=== PATIENT | female | born 1975 | race Caucasian/White ===

== ENCOUNTER → 2017-08-18 10:11 | Outpatient (POV) | payer MEDICAID, SELFPAY | PROVIDERS: Family Provider Nurse Practitioner; PCP Nurse Practitioner; Visit Provider Otolaryngology | DX: Z00.00 Encounter for general adult medical examination without abnormal findings (principal) ==

== ENCOUNTER 2017-11-06 09:00 | Outpatient (RCR) | payer MEDICAID, SELFPAY ==
--- NOTE | 2017-09-14 09:25 | HMH.PTOPWND ---
Rehab Outpt Wound Evaluation Rehab OP Wound Evaluation Start: 09/14/17 09:02 Freq: Status: Active Protocol: Document 09/14/17 09:12 TRENT (Rec: 09/14/17 09:23 PHORKISHA [id number]) Electronically Signed By Ap Morel, PT 09/14/17 09:12 Subjective/History History History Pt is 42 yof who presents to clinic with c/o mary LE edema for unknown period of time with insidious onset of symptoms. Pt reports pain in mary knees an is tender to palpation throughout mary lower legs. She reports hx of one C -section, but denies any other PMH. Pt is a poor historian. Lymphedema Eval Stemmer's sign Stemmer's Sign no Stage of Lymphedema Lymphedema stages Stage 0 (subjective c/o heaviness and aching) Skin Changes Dry Skin Yes Pain Scale Pain Scale (0-10) 9 Affected Extremities Areas Affected by Lymphedema/Edema Right Lower Extremity Left Lower Extremity Manual Lymphatic Drainage Treatment Area MLD Treatment Area Right Lower Extremity Left Lower Extremity Wound Problems/Impairments Impairments Problems/Impairmments Palpation Tenderness Impaired Walking Increased Edema Subjective C/O Pain Impaired Self Care/Self Management Prognosis Rehab Potential Fair Clinical Impression Consistent with possible lipidema Short Term Goals Number of Weeks 4 Decreased Palpation Tenderness Yes: to min Decrease Subjective C/O Pain Yes: 10/13 Patient to Understand Lymphedema Yes Treatment and Exercises Decrease Girth Measurments by (cm) Yes: by 5 cm Explosive Man Goals Number of Weeks 8 Decreased Palpation Tenderness Yes: to none Decrease Subjective C/O Pain Yes: / Patient to be Ind w/ HEP Yes Patient to Adhere Lymphedema Precautions Yes Decrease Girth Measurments by (cm) Yes: by 10 cm Outpatient Therapy Plan of Care Treatment Plan May Include Therapeutic Exercise Including Home Yes Exercise Program Manual Therapy Techniques Yes Neuromuscular Re-education Yes Orthotics/Bracing/Splinting Yes Vasopneumatic Compression Pump Yes Massage Yes Manual Lymphatic Drainage Yes Eval/Re-Eval Yes Frequency Times per week 2 Duration
== END 2017-11-06 09:01 | disposition home or self-care (01) ==
LOC: PT 09:00
PROVIDERS: Family Provider Nurse Practitioner; PCP Nurse Practitioner; Visit Provider Nurse Practitioner Family
DX: I89.0 Lymphedema, not elsewhere classified (principal)
CPT/HCPCS: 97140; 97162; 97760

== ENCOUNTER → 2018-06-22 10:15 | Outpatient (CLI) | payer MEDICAID, SELFPAY ==
--- NOTE | 2018-06-22 10:17 | MM_ITS ---
MM Dig screening mamm BI w/CAD CAD Screening COMPARISON: There are no previous mammograms available for review INDICATION: There is no personal or family history of breast cancer TECHNIQUE: Standard CC and MLO images were obtained. R2 CAD reviewed. FINDINGS: Prominent diffuse fibroglandular densities are seen in both breasts. There is an asymmetric oval mass upper outer quadrant right breast with relatively smooth borders recommend the patient return for spot compression views and ultrasound for additional evaluation. There is no suspicious mass either breast and there are no suspicious microcalcifications. The nodular density near the axilla tail left breast with smooth borders likely a low-lying node. IMPRESSION: Moderate diffuse breast density with asymmetric mass right breast BI-RADS Category: 0 Need Additional Imaging Evaluation RECOMMENDED FOLLOW-UP: IMM - IMMEDIATE FOLLOW-UP RECOMMENDED (A letter has been sent to the patient regarding results of the study.)
== END ==
PROVIDERS: PCP Nurse Practitioner Family; Visit Provider Nurse Practitioner Obstetrics & Gynecology
DX: Z12.31 Encounter for screening mammogram for malignant neoplasm of breast (principal)
CPT/HCPCS: 77067

== ENCOUNTER → 2018-07-02 11:23 | Outpatient (CLI) | payer MEDICAID, SELFPAY ==
--- NOTE | 2018-07-02 11:25 | US_ITS ---
US transvaginal HISTORY: ITS.REASON: US T/V- Pelvic pain ORDERING PHYSICIAN: Jacob Hanson MD PATIENT AGE: 43 years Comparison: None FINDINGS: The uterus measures 10 x 5 x 6 cm. Combined omental thickness is thickened at 15 mm. Study is somewhat limited technically. Ovaries are not demonstrated despite endovaginal and transabdominal scanning. No cul-de-sac fluid evident. IMPRESSION: Bulky uterus with thickened endometrium Ovaries not demonstrated.
== END ==
PROVIDERS: PCP Nurse Practitioner Family; Visit Provider Nurse Practitioner Obstetrics & Gynecology
DX: R10.2 Pelvic and perineal pain (principal)
CPT/HCPCS: 76830

== ENCOUNTER → 2018-09-30 13:13 | Outpatient (CLI) | payer MEDICAID, SELFPAY ==
--- NOTE | 2018-09-30 13:15 | US_ITS ---
US urinary bladder ORDERING PHYSICIAN : Irma Kearney APRN PATIENT AGE: 43 years GENDER: Female HISTORY:ITS.REASON: RECURRENT UTIS COMPARISON: None TECHNIQUE: Routine FINDINGS: The fluid filled urinary bladder shows measurements of 6.7 x 7.8 x 4.3 cm with a volume of 121 mL. The melgoza are smooth. Post void residual is 2.5 x 1.1 x 2.4 cm with volume of 3.6 mL. IMPRESSION: Minimal post void residual. No urinary bladder mucosal lesion or filling defects.
--- NOTE | 2018-09-30 13:15 | US_ITS ---
US Kidney ORDERING PHYSICIAN : Irma Kearney APRN PATIENT AGE: 43 years GENDER: Female HISTORY:ITS.REASON: RECURRENT UTIS COMPARISON: None. TECHNIQUE: Routine FINDINGS: Right kidney is 11.2 x 4.1 x 5.9 cm. Left kidney is 10.3 x 5.0 x 7.5 cm. The echogenicity of the renal cortical areas bilaterally are normal compared to the liver. There are no shadowing echogenic foci or hydronephrosis. There is no abnormal cortical thinning. IMPRESSION: Normal ultrasound of both kidneys. Technologist stated possible decreased flow of blood to the right kidney however this could be technical. If there is any history of hypertension although there is no right renal atrophy, if necessary a CTA could evaluate the renal arteries if clinically necessary.
== END ==
PROVIDERS: PCP Nurse Practitioner Family; Visit Provider Nurse Practitioner Family
DX: N39.0 Urinary tract infection, site not specified (principal)
CPT/HCPCS: 76770; 76857

== ENCOUNTER → 2020-03-08 14:37 | Outpatient (CLI) | payer MEDICAID, SELFPAY ==
--- NOTE | 2020-03-08 14:41 | XR_ITS ---
PROCEDURE: XR CHEST PORTABLE CLINICAL HISTORY: COVID SCREENING COMPARISON: CR CXR CHEST(2 VIEWS-NOT PORTABLE) from 10/14/2014 CR CXR2V XR chest 2V from 08/19/2018 FINDINGS: The cardiomediastinal silhouette and pulmonary vascularity are within normal limits. On the initial exam the lung apices were clipped. The patient was asked to return on 03/09/2020 for repeat exam which covered the entire lung jacobo. The lungs are clear without infiltrates, suspicious nodules, or pleural effusions. No acute bony abnormalities. IMPRESSION: No acute findings. Dictated by: Liam Teresa MD 03/09/2020 18:09 Liam Teresa MD in [facility] 03/09/2020 18:09
[2020-03-10 18:37] LABS: Covid-19 Nasal PCR Sendout Lex Positive
== END ==
PROVIDERS: PCP Nurse Practitioner Family; Visit Provider Nurse Practitioner Family
DX: Z20.828 Contact with and (suspected) exposure to other viral communicable diseases (principal); U07.1 COVID-19
CPT/HCPCS: 71045; U0004

== ENCOUNTER → 2020-03-09 16:34 | Outpatient (CLI) | payer MEDICAID, SELFPAY ==
--- NOTE | 2020-03-09 | XR_ITS ---
PROCEDURE: REPEAT VIEW XR CLINICAL INDICATION: Covid19 the COMPARISON: CR XR CHEST PORTABLE from 03/08/2020 FINDINGS: Unremarkable cardiovascular structures. Lungs are clear. Calcified node is present in the left hilum. IMPRESSION: No acute findings. Dictated by: Liam Teresa MD 03/09/2020 17:44 Liam Teresa MD in [facility] 03/09/2020 17:44
== END ==
PROVIDERS: PCP Nurse Practitioner Family; Visit Provider Nurse Practitioner Family
DX: Z03.818 Encounter for observation for suspected exposure to other biological agents ruled out (principal)

== ENCOUNTER → 2020-12-04 15:07 | Outpatient (CLI) | payer MEDICAID, SELFPAY ==
[2020-12-05 14:27] LABS: Urine Pregnancy, HCG Qual. Negative (Negative)
== END ==
PROVIDERS: Visit Provider Urology
DX: R32 Unspecified urinary incontinence (principal)
CPT/HCPCS: 36415; 80053; 81025; 82306; 85025; 87086

== ENCOUNTER 2022-02-19 08:47 | Emergency (ER) | payer MEDICAID, SELFPAY ==
[2022-02-19] VITALS (7 sets, daily range): BP systolic 91–137; BP diastolic 57–82; PULSE 72–89; RESP 16–20; TEMP 36.9; O2SAT 95–99; BMI 40.6
[2022-02-19 09:04] LABS: Microscopic, Urine URINE MICROSCOPIC (MICROSCOPIC)
[2022-02-19 09:05] LABS: Appearance,Urine CLEAR (Clear); Bilirubin,Urine Negative (Negative); Blood, Urine 3+ (Negative); Color,Urine YELLOW (Yellow); Glucose,Urine (UA) Negative (Negative); Ketones,Urine Negative (Negative); Leukocyte Esterase,Urine TRACE (Negative); Nitrate,Urine Negative (Negative); PH,Urine 5.5 (5.0-8.5); Protein,Urine TRACE (Negative); Specific Gravity, Urine >= 1.030 (1.005-1.030); Urobilinogen,Urine 0.2 EU/dl (0.2)
[2022-02-19 09:28] LABS: WBC,Urine Occasional #/hpf (0-3)
--- NOTE | 2022-02-19 09:32 | PC.NURSE ---
ED MD AT BEDSIDE FOR EVALUATION
--- NOTE | 2022-02-19 09:38 | CT_ITS ---
FINAL REPORT TECHNIQUE: Axial images through the abdomen and pelvis were performed without contrast. This study was performed with techniques to keep radiation doses as low as reasonably achievable, (ALARA). Individualized dose reduction techniques using automated exposure control or adjustment of mA and/or kV according to the patient's size were employed. CLINICAL HISTORY: hematuria, back pain, dysuria FINDINGS: Abdomen: The lung bases are clear. There is a nodule in the right breast measuring 1.7 cm in diameter. This appears to be solid and rounded and is well seen on image 6 of series 3. The liver parenchyma is homogeneous. The spleen, pancreas, adrenals and kidneys are unremarkable. Pelvis: The appendix is unremarkable. The uterus is anteverted and lies midline. The urinary bladder is unremarkable. There is no pelvic mass or inflammation. IMPRESSION: No acute abdominal or pelvic abnormality. 1.7 cm solid nodule in the right breast, neoplasia not excluded.. Correlation with physical exam and mammography highly recommended. Reviewed, Interpreted and Dictated by Eris Tejada MD Transcribed by Marci Staton Authenticated and [facility]
--- NOTE | 2022-02-19 09:39 | HMH.EDGENADL ---
Discharge Plan Disposition Patient Disposition: Home, Self-Care Condition: Good Prescriptions Prescriptions: No Action ferrous sulfate 325 mg (65 mg iron) tablet 325 mg PO DAILY ranitidine HCl 150 mg capsule 150 mg PO DAILY Zyrtec 10 mg capsule 10 mg PO DAILY fluticasone propionate [Flonase Allergy Relief] 50 mcg/actuation spray,suspension 1 spray INTRANASAL DAILY MDD allergy naproxen 375 mg tablet 375 mg PO BID PRN (Reason: pain) lisinopril-hydrochlorothiazide 20-12.5 mg tablet PO DAILY Label Comments: TAKE ONE TABLET BY MOUTH EVERY DAY pantoprazole 40 mg tablet,delayed release (DR/EC) 40 mg PO DAILY divalproex [Depakote] 500 mg tablet,delayed release (DR/EC) 500 mg PO TID triamterene-hydrochlorothiazid 37.5-25 mg capsule 1 cap PO DAILY amitriptyline 10 mg tablet 10 mg PO DAILY oxybutynin chloride 5 mg tablet extended release 24hr 5 mg PO DAILY Toviaz 4 mg tablet extended release 24 hr 4 mg PO DAILY aripiprazole 5 mg tablet 5 mg PO QHS Qty: 30 2RF oxybutynin chloride 5 mg tablet 5 mg PO BID Qty: 120 5RF Toviaz 8 mg tablet extended release 24 hr 8 mg PO DAILY Qty: 30 5RF ondansetron 4 MG tablet,disintegrating 4 mg PO Q8HP PRN (Reason: Nausea) Qty: 20 0RF Referrals Follow up/Referrals: Irma Kearney APRN [Primary Care Provider] - See instructions Activity Restrictions/Add. Instructions Additional Instructions/Restrictions: Follow-up tomorrow with your primary care provider as scheduled. Your tests did not show a reason for your urinary symptoms, follow-up with your primary care provider for further evaluation. Urine culture has been performed, results generally take 2 to 3 days. Follow-up the results of this test with your primary care provider within 2 [address] scan showed a mass in your right breast which needs further evaluation by your primary care provider. Follow-up regarding this tomorrow. Clinical Impressions Clinical Impression: Dysuria, Back pain, Breast mass, right Instructions Patient Instructions: DI for Dysuria -- Adult, DI for Breast Mass -- Uncertain Cause Discharge ED Provider: Ferdinand Cartagena Adult [facility] General Chief complaint: Urogenital-Female Stated complaint: Possible UTI Time Seen by Provider: 02/19/22 09:17 Mode of Arrival: Ambulatory Limitations: No Limitations Description of Symptoms (Recalled from ER Triage Doc. by RN): PT REPORTS BURNING WITH URINATION. CURRENTLY ON ABX, STATES SHE IS NOT GETTING ANY BETTER History of Present Illness HPI narrative: Patient is a poor historian. States that she has a UTI and its not getting any better. States she has been symptomatic for a couple of weeks with dysuria, bilateral flank pain, left lower quadrant pain. She saw her primary care provider couple of weeks ago. She says that she was told she had blood in her urine. She does not know whether a culture was done. She was started on Cipro and Pyridium and has not improved. Denies fever. No prior history of kidney stone. She is sexually active. Denies genital discharge or lesions. States that she has been having trouble with her menses, but is not currently bleeding. States she has an appointment to see her primary care provider tomorrow. Related Data Home Medications Medication Instructions Recorded Confirmed amitriptyline 10 mg tablet 10 mg PO DAILY . 04/20/18 02/11/22 divalproex 500 mg tablet,delayed 500 mg PO TID . 04/20/18 02/11/22 release (Depakote) fesoterodine 4 mg tablet,extended 4 mg PO DAILY . 04/20/18 02/11/22 release 24 hr (Toviaz) oxybutynin chloride 5 mg 5 mg PO DAILY . 04/20/18 02/11/22 tablet,extended release 24 hr pantoprazole 40 mg tablet,delayed 40 mg PO DAILY GERD 04/20/18 02/11/22 release triamterene 37.5 1 cap PO DAILY fluid 04/20/18 02/11/22 mg-hydrochlorothiazide 25 mg capsule cetirizine 10 mg capsule (
[2022-02-19 09:44] LABS: Urine Pregnancy, HCG Qual. Negative (Negative)
--- NOTE | 2022-02-19 09:51 | PC.NURSE ---
PT TO CT AT THIS TIME
[2022-02-19 10:02] LABS: Basophils # 0.1 K/mm3 (0-0.2); Basophils % 1.1 % (0.1-2.0); Eosinophils # 0.1 K/mm3 (0.0-0.4); Eosinophils % 1.4 % (0.1-12.0); Hematocrit 41.3 % (37.0-47.0); Lymphocytes # 2.5 K/mm3 (0.7-4.5); Lymphocytes % 36.8 % (10-50); Mean Corpuscular HGB Conc 31.4 g/dL (31.8-35.4); Mean Corpuscular Hemoglobin 30.4 pg (27.0-31.2); Mean Corpuscular Volume 96.7 fl (81-99); Mean Platelet Volume 8.4 fl (7.4-10.4); Monocytes # 0.5 K/mm3 (0.1-1.0); Monocytes % 6.6 % (1.7-9.3); Neutrophils # 3.7 K/mm3 (1.8-7.8); Neutrophils % 54.2 % (37.0-80.0); Platelet Count 252 K/mm3 (142-424); Red Blood Count 4.27 M/mm3 (4.20-5.40); Red Cell Distribution Width 14.3 % (11.5-17.5); White Blood Count 6.9 K/mm3 (4.8-10.8)
--- NOTE | 2022-02-19 10:08 | PC.NURSE ---
PT IN CT
[2022-02-19 10:09] LABS: Anion Gap 16.3 mEq/L (5-15); Blood Urea Nitrogen 32 mg/dl (7-17); Calcium 9.5 mg/dl (8.4-10.2); Carbon Dioxide 27 mmol/L (22.0-30.0); Chloride 101 mmol/L (98-107); Creatinine Clearance Estimated 141 mL/min (50-200); Estimated Glomerular Filt Rate 60 ml/min (>60); GFR (African American) 73 ML/MIN (>60); Glucose 91 mg/dl (74-100); Potassium 4.3 mmoL/L (3.5-5.1); Sodium 140 mmol/L (136-145)
--- NOTE | 2022-02-19 10:12 | PC.NURSE ---
PT RETURNED FROM CT
--- NOTE | 2022-02-19 11:15 | PC.NURSE ---
PT RESTING IN BED WATCHING TV, NO NEEDS AT THIS TIME
--- NOTE | 2022-02-19 12:30 | PC.NURSE ---
ROUNDED ON PT, NO NEEDS AT THIS TIME
--- NOTE | 2022-02-19 12:45 | PC.NURSE ---
present with MD during breast exam, pt tolerated well
[2022-02-20 21:20] LABS: Neisseria gonorrhoeae, NAA Negative (Negative)
== END 2022-02-19 12:56 | disposition home or self-care (01) ==
PROVIDERS: Emergency Provider Emergency Medicine; PCP Nurse Practitioner Family
DX: N39.0 Urinary tract infection, site not specified (principal); R31.9 Hematuria, unspecified; N63.11 Unspecified lump in the right breast, upper outer quadrant; F39 Unspecified mood [affective] disorder; Z79.1 Long term (current) use of non-steroidal anti-inflammatories (NSAID); Z79.51 Long term (current) use of inhaled steroids; Z79.899 Other long term (current) drug therapy; Z91.041 Radiographic dye allergy status; R11.0 Nausea
CPT/HCPCS: 74176; 80048; 81001; 81025; 85025; 87491; 87591; 99285

== ENCOUNTER → 2022-03-13 13:44 | Outpatient (CLI) | payer MEDICAID, SELFPAY ==
--- NOTE | 2022-03-13 13:47 | MM_ITS ---
PROCEDURE INFORMATION: Exam: Right Diagnostic Breast Tomosynthesis Exam date and time: 03/13/2022 1:53 PM Age: 46 years old Clinical indication: Concern for right breast lump. No family history of breast cancer. TECHNIQUE: Imaging protocol: Right Diagnostic tomosynthesis and 2D mammography including computer-aided detection (CAD) when performed. Unilateral or bilateral exam. Spot compression added on the right. COMPARISON: [facility] MM Dig screening mamm BI w/CAD 06/22/2018 10:26 AM FINDINGS: MAMMOGRAPHY: Breast composition: There are scattered areas of fibroglandular density. Mass: Palpable lump corresponds to a lobulated 1.7 cm mass in the right upper outer quadrant, anterior to middle 3rd, superficial, which is larger than 06/22/2018 - and had been advised for recall on that mammogram report. Architectural distortion: None. Calcifications: No suspicious calcifications. Asymmetric density: None. Skin thickening: None. Axillary adenopathy: None. IMPRESSION: Patient to be recalled for right sonography for further evaluation of suspicious lobulated 1.7 cm mass in the right upper outer quadrant corresponding to the palpable lump. ASSESSMENT: BI-RADS Category 0: Incomplete- Need Additional Imaging Evaluation and/or Prior Mammograms for Comparison
--- NOTE | 2022-03-13 14:56 | US_ITS ---
PROCEDURE INFORMATION: Exam: US Right Breast, Complete, Abscess Evaluation MG Diagnostic Breast Tomosynthesis Exam date and time: 03/13/2022 2:57 PM Age: 46 years old Clinical indication: Right palpable nodule TECHNIQUE: Imaging protocol: Right Ultrasound of the breast with image documentation. All quadrants and retroareolar regions evaluated. Exam focused on the search and evaluation for abscess. Exam is an emergent request and a non-BIRADS study. Diagnostic tomosynthesis and 2D mammography including computer-aided detection (CAD) when performed. Unilateral or bilateral exam. COMPARISON: [facility] MM Dig screening mamm BI w/CAD 06/22/2018 10:26 AM FINDINGS: MAMMOGRAPHY: The breast tissue is composed of scattered areas of fibroglandular density. Routine and spot compression views over the area of palpable concern in the right approximate 9 o'clock axis demonstrates a lobulated 2.0 cm mass. There is no stellate mass, architectural distortion or suspicious microcalcifications in either breast to suggest malignancy. No skin thickening or axillary adenopathy. ULTRASOUND: Sonographic images of the right 9 o'clock axis 2 cm from the nipple where the patient reports a palpable abnormality demonstrates a mixed solid and cystic mass measuring 1.8 x 1.5 1.6 cm in dimension. An intracystic papillary lesion is suspected. No other solid or cystic masses in the right breast. No axillary adenopathy. IMPRESSION: Palpable abnormality in the right breast corresponds mammographically and sonographically to an indeterminate predominately solid mass for which ultrasound-guided core biopsy is recommended for further evaluation ASSESSMENT: BI-RADS Category 4: Suspicious
== END ==
PROVIDERS: PCP Nurse Practitioner Family; Visit Provider Nurse Practitioner Family
DX: N63.13 Unspecified lump in the right breast, lower outer quadrant (principal)
CPT/HCPCS: 76641; 77062; 77066; G0279

== ENCOUNTER → 2022-03-26 08:37 | Outpatient (CLI) | payer MEDICAID, SELFPAY ==
--- NOTE | 2022-03-26 08:45 | US_ITS ---
FINAL REPORT CLINICAL HISTORY: ABN RT BREAST US, right breast nodule FINDINGS: ULTRASOUND-GUIDED RIGHT BREAST CORE BIOPSY TECHNIQUE: Limited images were obtained to localize region of interest. The right breast was prepped in a routine sterile fashion and locally anesthetized with 1% lidocaine. Standard written informed consent was obtained. The biopsy needle was positioned within the outer periphery of the lesion. A total of 3 passes were made with a 16 gauge core biopsy needle. A biopsy marker clip was deployed in satisfactory position. Postbiopsy mammogram showed postbiopsy changes with clip in satisfactory position. Procedure was well tolerated . CONCLUSION: 1. Technically successful ultrasound guided core biopsy of right breast lesion as above. 2. Biopsy marker clip deployed Recommendation: Histopathology revealed sclerosing intraductal papilloma. Although this is a benign diagnosis the lesion shows significant enlargement since 2019. Surgical excision is recommended, particularly since a minority of these cases can be associated with carcinoma with excisional biopsy. Authenticated and [facility]
--- NOTE | 2022-03-26 08:47 | MM_ITS ---
FINAL REPORT CLINICAL HISTORY: clip placement right breast, right breast mass FINDINGS: MAMMOGRAM RIGHT TECHNIQUE: Standard digital 2-D views COMPARISON: 03-13-22 and 06-22-18 DENSITY: There are scattered areas of fibroglandular density FINDINGS: Post biopsy marker clip is noted to be in satisfactory position within the mass located in the right breast at 9-10:00. Postbiopsy changes are noted. Mass remains well-circumscribed IMPRESSION: Biopsy marker clip in good position within the known right breast mass RECOMMENDATION: Histopathology reveals a sclerosing intraductal papilloma. Given enlargement of the mass since 2019, surgical consultation for excisional biopsy is recommended. Biopsy findings are concordant with imaging findings. Authenticated and [facility]
== END ==
PROVIDERS: PCP Nurse Practitioner Family; Visit Provider Nurse Practitioner Family
DX: R92.8 Other abnormal and inconclusive findings on diagnostic imaging of breast (principal)
CPT/HCPCS: 19083; 77065

== ENCOUNTER 2022-12-29 12:07 | Emergency (ER) | payer MEDICAID, SELFPAY ==
[2022-12-29 12:09] VITALS: BP 135/81; PULSE 107; RESP 18; TEMP 36.7; O2SAT 95; BMI 42.2
--- NOTE | 2022-12-29 12:19 | PC.NURSE ---
Urine collected and sent to lab
--- NOTE | 2022-12-29 12:22 | PC.NURSE ---
Dr. Wang at [facility] for pt eval
--- NOTE | 2022-12-29 12:26 | HMH.EDGENADL ---
Discharge Plan Disposition Patient Disposition: Home, Self-Care Prescriptions Prescriptions: New cefdinir 300 mg capsule 300 mg PO BID 10 Days Qty: 20 0RF No Action ferrous sulfate 325 mg (65 mg iron) tablet 325 mg PO DAILY ranitidine HCl 150 mg capsule 150 mg PO DAILY Zyrtec 10 mg capsule 10 mg PO DAILY fluticasone propionate [Flonase Allergy Relief] 50 mcg/actuation spray,suspension 1 spray INTRANASAL DAILY MDD allergy naproxen 375 mg tablet 375 mg PO BID PRN (Reason: pain) lisinopril-hydrochlorothiazide 20-12.5 mg tablet PO DAILY Patient Comments: TAKE ONE TABLET BY MOUTH EVERY DAY pantoprazole 40 mg tablet,delayed release (DR/EC) 40 mg PO DAILY divalproex [Depakote] 500 mg tablet,delayed release (DR/EC) 500 mg PO TID triamterene-hydrochlorothiazid 37.5-25 mg capsule 1 cap PO DAILY amitriptyline 10 mg tablet 10 mg PO DAILY oxybutynin chloride 5 mg tablet extended release 24hr 5 mg PO DAILY Toviaz 4 mg tablet extended release 24 hr 4 mg PO DAILY oxybutynin chloride 5 mg tablet 5 mg PO BID Qty: 120 5RF Toviaz 8 mg tablet extended release 24 hr 8 mg PO DAILY Qty: 30 5RF aripiprazole 5 mg tablet 5 mg PO QHS Qty: 30 2RF ondansetron 4 MG tablet,disintegrating 4 mg PO Q8HP PRN (Reason: Nausea) Qty: 20 0RF Referrals Follow up/Referrals: Javier Logan MD [Primary Care Provider] - See instructions Activity Restrictions/Add. Instructions Additional Instructions/Restrictions: Call your family doctor to establish care for this visit to the emergency department and schedule follow-up within 48 hours to ensure improvement. If you have any worsening of your condition or any other concerning signs or symptoms, return to the emergency department or your primary care doctor for further evaluation. Be sure to take cefdinir every day, twice daily for the entire course. Clinical Impressions Clinical Impression: Pyelonephritis Instructions Patient Instructions: DI for Urinary Tract Infection (UTI), DI for Urinary Tract Infection in Children Discharge ED Provider: Blaine Wang General Adult HPI General Chief complaint: Urogenital-Female Stated complaint: abd pain hurt suspted UTI Time Seen by Provider: 09/25/23 12:11 History of Present Illness HPI narrative: 47-year-old female with history of numerous UTIs, bipolar disorder on aripiprazole and divalproex presenting with dysuria. Patient states that she started having dysuria about 2 weeks prior to arrival. Since that time, developed left-sided lower abdominal pain and back pain. Denies fevers, chills, nausea, vomiting, nette blood in her urine, inability to urinate, lower extremity symptoms, any trauma, or any other concerns. Bowel movements normal for her. Has been drinking cranberry juice, but not taking any medication. Related Data Home Medications Medication Instructions Recorded Confirmed amitriptyline 10 mg tablet 10 mg PO DAILY . 04/20/18 08/12/22 divalproex 500 mg tablet,delayed 500 mg PO TID . 04/20/18 08/12/22 release (Depakote) fesoterodine 4 mg tablet,extended 4 mg PO DAILY . 04/20/18 08/12/22 release 24 hr (Toviaz) oxybutynin chloride 5 mg 5 mg PO DAILY . 04/20/18 08/12/22 tablet,extended release 24 hr pantoprazole 40 mg tablet,delayed 40 mg PO DAILY GERD 04/20/18 08/12/22 release triamterene 37.5 1 cap PO DAILY fluid 04/20/18 08/12/22 mg-hydrochlorothiazide 25 mg capsule cetirizine 10 mg capsule (Zyrtec) 10 mg PO DAILY allergies 10/28/18 08/12/22 ferrous sulfate 325 mg (65 mg 325 mg PO DAILY Supplement 10/28/18 08/12/22 iron) tablet fluticasone propionate 50 1 spray intranasal DAILY allergies 10/28/18 08/12/22 mcg/actuation nasal spray,suspension (Flonase Allergy Relief) naproxen 375 mg tablet 375 mg PO BID PRN pain 10/28/18 08/12/22 ranitidine HCl 150 mg capsule 150 mg PO DAILY GERD 10/28/18 08/12/22 lisinop
[2022-12-29 12:27] LABS: Microscopic, Urine URINE MICROSCOPIC (MICROSCOPIC)
[2022-12-29 12:29] LABS: Appearance,Urine SL CLOUDY (Clear); Bilirubin,Urine Negative (Negative); Blood, Urine 2+ (Negative); Color,Urine YELLOW (Yellow); Glucose,Urine (UA) Negative (Negative); Ketones,Urine TRACE (Negative); Leukocyte Esterase,Urine 1+ (Negative); Nitrate,Urine Negative (Negative); Protein,Urine 2+ (Negative); Specific Gravity, Urine >= 1.030 (1.005-1.030); Urobilinogen,Urine 0.2 EU/dl (0.2)
[2022-12-29 12:30] LABS: Urine Pregnancy, HCG Qual. Negative (Negative)
[2022-12-29 12:31] VITALS: BP 138/65; PULSE 96; RESP 18; O2SAT 97
[2022-12-29 12:46] LABS: Bacteria,Urine 1+ /lpf
[2022-12-29 13:17] VITALS: BP 130/58; PULSE 61; RESP 18; TEMP 36.7; O2SAT 95
--- NOTE | 2022-12-31 10:43 | PC.NURSE ---
dr. cavazos is ER MD on shift at this time notified him of pt preliminary urine culture results-gram negative rods, pt d/c from ER on Cefdinir bid x10 days states no medications need to be changed at this time.
== END 2022-12-29 13:30 | disposition home or self-care (01) ==
PROVIDERS: Emergency Provider Emergency Medicine; PCP Family Medicine
DX: N10 Acute pyelonephritis (principal); B96.29 Other Escherichia coli [E. coli] as the cause of diseases classified elsewhere; F17.210 Nicotine dependence, cigarettes, uncomplicated; F39 Unspecified mood [affective] disorder
CPT/HCPCS: 81001; 81025; 87086; 87088; 87186; 99283

== ENCOUNTER 2023-09-28 17:01 | Emergency (ER) | payer MEDICAID, SELFPAY ==
[2023-09-28] VITALS (17 sets, daily range): BP systolic 127–171; BP diastolic 74–102; PULSE 72–104; RESP 12–22; TEMP 36.7; O2SAT 95–100; BMI 49.4
--- NOTE | 2023-09-28 17:01 | XR_ITS ---
PROCEDURE INFORMATION: Exam: XR Left Femur Exam date and time: 09/28/2023 5:27 PM Age: 48 years old Clinical indication: Injury or trauma; Fall; Blunt trauma; Thigh or upper leg; Left TECHNIQUE: Imaging protocol: Radiologic exam of the left femur. Views: 2 views. COMPARISON: CR XR HIP LT 2-3V W/PELVIS 09/28/2023 5:27 PM FINDINGS: Bones/joints: Unremarkable. No acute fracture. Soft tissues: Unremarkable. IMPRESSION: No acute findings.
--- NOTE | 2023-09-28 17:01 | XR_ITS ---
PROCEDURE INFORMATION: Exam: XR Left Knee Exam date and time: 09/28/2023 5:27 PM Age: 48 years old Clinical indication: Injury or trauma; Fall; Blunt trauma; Knee; Left TECHNIQUE: Imaging protocol: Radiologic exam of the left knee. Views: 3 views. COMPARISON: CR XR ANKLE LT MIN 3V 09/28/2023 5:27 PM FINDINGS: Bones/joints: Mild medial compartment osteoarthritis. Soft tissues: Normal. IMPRESSION: 1. Mild medial compartment osteoarthritis. 2. No fractures.
--- NOTE | 2023-09-28 17:01 | XR_ITS ---
PROCEDURE INFORMATION: Exam: XR Left Tibia and Fibula Exam date and time: 09/28/2023 5:27 PM Age: 48 years old Clinical indication: Injury or trauma; Fall; Blunt trauma; Lower leg; Left TECHNIQUE: Imaging protocol: Radiologic exam of the left tibia and fibula. Views: 2 views. COMPARISON: CR XR ANKLE LT MIN 3V 09/28/2023 5:27 PM FINDINGS: Bones/joints: Mild medial compartment osteoarthritis. Severely comminuted fracture dislocations through the distal fibula and tibia. Please see left ankle report for additional details. Soft tissues: Associated soft tissue swelling is identified. IMPRESSION: 1. Mild medial compartment osteoarthritis. 2. Severely comminuted fracture dislocations through the distal fibula and tibia. Please see left ankle report for additional details.
--- NOTE | 2023-09-28 17:01 | XR_ITS ---
PROCEDURE INFORMATION: Exam: XR Left Ankle Exam date and time: 09/28/2023 5:27 PM Age: 48 years old Clinical indication: Injury or trauma; Fall; Blunt trauma; Ankle; Left TECHNIQUE: Imaging protocol: Radiologic exam of the left ankle. Views: 3 or more views. COMPARISON: CR ANKCMLT XR ankle LT min 3V 12/16/2017 5:16 PM FINDINGS: Bones/joints: Severely comminuted fracture through the distal fibula beginning at the level of the distal diaphysis with extension to the epiphyseal area. The largest fracture fragment measures 7 cm x 2.2 cm and is displaced laterally by 1 shaft with 40 degrees of lateral angulation. There is also acute fracture dislocation of the distal tibia epiphyseal area. There is avulsion fracture fragments off the medial malleolus region 1 fragment measures 2 cm and the 2nd measures 13 mm. The hindfoot is displaced 1 shaft width with respect to the distal tibia. Soft tissues: Severe soft tissue swelling.. IMPRESSION: Acute comminuted fracture dislocations as discussed.
--- NOTE | 2023-09-28 17:01 | XR_ITS ---
PROCEDURE INFORMATION: Exam: XR Left Foot Exam date and time: 09/28/2023 5:27 PM Age: 48 years old Clinical indication: Injury or trauma; Fall; Blunt trauma; Foot; Left TECHNIQUE: Imaging protocol: Radiologic exam of the left foot. Views: 3 or more views. COMPARISON: CR [id number] XR foot LT min 3V 12/16/2017 5:14 PM FINDINGS: Bones/joints: Partially visualized fractures through the distal tibia and fibula. Not well evaluated on this exam. Note is made of a prominent plantar calcaneal enthesophyte. No evidence for osseous erosion at the tip. Soft tissues: Dorsal soft tissue swelling over the midfoot. IMPRESSION: 1. Partially visualized fractures through the distal tibia and fibula. Not well evaluated on this exam. No fractures identified within the foot. 2. Dorsal soft tissue swelling over the midfoot.
--- NOTE | 2023-09-28 17:01 | XR_ITS ---
PROCEDURE INFORMATION: Exam: XR Left Hip Exam date and time: 09/28/2023 5:27 PM Age: 48 years old Clinical indication: Injury or trauma; Fall; Blunt trauma (contusions or hematomas); Left; Hip TECHNIQUE: Imaging protocol: Radiologic exam of the left hip. Views: 2 or 3 views hip with pelvis when performed. COMPARISON: CT ABDOMEN PELVIS WO CON 02/19/2022 10:04 AM FINDINGS: Bones/joints: Unremarkable. No acute fracture. Soft tissues: Unremarkable. IMPRESSION: No acute findings.
--- NOTE | 2023-09-28 17:01 | HMH.EDGENADL ---
Discharge Plan Disposition Patient Disposition: Xfer Short-Term Hosp Prescriptions Prescriptions: No Action ferrous sulfate 325 mg (65 mg iron) tablet 325 mg PO DAILY ranitidine HCl 150 mg capsule 150 mg PO DAILY Zyrtec 10 mg capsule 10 mg PO DAILY fluticasone propionate [Flonase Allergy Relief] 50 mcg/actuation spray,suspension 1 spray INTRANASAL DAILY MDD allergy naproxen 375 mg tablet 375 mg PO BID PRN (Reason: pain) lisinopril-hydrochlorothiazide 20-12.5 mg tablet PO DAILY Patient Comments: TAKE ONE TABLET BY MOUTH EVERY DAY pantoprazole 40 mg tablet,delayed release (DR/EC) 40 mg PO DAILY divalproex [Depakote] 500 mg tablet,delayed release (DR/EC) 500 mg PO TID triamterene-hydrochlorothiazid 37.5-25 mg capsule 1 cap PO DAILY amitriptyline 10 mg tablet 10 mg PO DAILY oxybutynin chloride 5 mg tablet extended release 24hr 5 mg PO DAILY Toviaz 4 mg tablet extended release 24 hr 4 mg PO DAILY aripiprazole 5 mg tablet 5 mg PO QHS Qty: 30 2RF oxybutynin chloride 5 mg tablet 5 mg PO BID Qty: 120 5RF Toviaz 8 mg tablet extended release 24 hr 8 mg PO DAILY Qty: 30 5RF ondansetron 4 MG tablet,disintegrating 4 mg PO Q8HP PRN (Reason: Nausea) Qty: 20 0RF cefdinir 300 mg capsule 300 mg PO BID 10 Days Qty: 20 0RF Clinical Impressions Clinical Impression: Closed fracture dislocation of left ankle Discharge ED Provider: Monik Gardner General Adult HPI <ROBER May - Last Filed: 09/28/23 17:01> General Chief complaint: Extremity Injury, Lower Stated complaint: Fall/ankle pain Time Seen by Provider: 09/28/23 17:01 Related Data Home Medications Medication Instructions Recorded Confirmed amitriptyline 10 mg tablet 10 mg PO DAILY . 04/20/18 07/15/23 divalproex 500 mg tablet,delayed 500 mg PO TID . 04/20/18 07/15/23 release (Depakote) fesoterodine 4 mg tablet,extended 4 mg PO DAILY . 04/20/18 07/15/23 release 24 hr (Toviaz) oxybutynin chloride 5 mg 5 mg PO DAILY . 04/20/18 07/15/23 tablet,extended release 24 hr pantoprazole 40 mg tablet,delayed 40 mg PO DAILY GERD 04/20/18 07/15/23 release triamterene 37.5 1 cap PO DAILY fluid 04/20/18 07/15/23 mg-hydrochlorothiazide 25 mg capsule cetirizine 10 mg capsule (Zyrtec) 10 mg PO DAILY allergies 10/28/18 07/15/23 ferrous sulfate 325 mg (65 mg 325 mg PO DAILY Supplement 10/28/18 07/15/23 iron) tablet fluticasone propionate 50 1 spray intranasal DAILY allergies 10/28/18 07/15/23 mcg/actuation nasal spray,suspension (Flonase Allergy Relief) naproxen 375 mg tablet 375 mg PO BID PRN pain 10/28/18 07/15/23 ranitidine HCl 150 mg capsule 150 mg PO DAILY GERD 10/28/18 07/15/23 lisinopril 20 tab PO DAILY 04/13/19 07/15/23 mg-hydrochlorothiazide 12.5 mg tablet Previous Rx's Medication Instructions Recorded ondansetron 4 mg disintegrating 4 mg PO Q8HP PRN Nausea ##20 06/28/19 tablet fesoterodine 8 mg tablet,extended 8 mg PO DAILY #30 tabs 05/23/21 release 24 hr (Toviaz) oxybutynin chloride 5 mg tablet 5 mg PO BID #120 tabs 05/23/21 cefdinir 300 mg capsule 300 mg PO BID 10 days #20 caps 12/29/22 aripiprazole 5 mg tablet 5 mg PO QHS mood #30 tabs 07/03/23 Allergies Allergy/AdvReac Type Severity Reaction Status Date / Time Iodinated Contrast Media Allergy Intermediate BREAKS Verified 07/15/23 12:53 [Iodinated Contrast Media - OUT IV Dye] <Monik Gardner, DO - Last Filed: 09/28/23 19:16> History of Present Illness HPI narrative: This patient is a 48-year-old female with a history of obesity, seizure disorder presenting to the emergency department for evaluation with concern for left ankle injury. Patient was walking through her yard when she stepped in a hole, twisting and falling with her left foot planted in the hole. She was not able to bear weight afterwards. She arrives by EMS who noted obvious deformity. No other injuries or concerns noted at this time. Patient does not take any blood thinners. [facility] <ROBER May - Last Filed: 09/28/23 17:01> [facility] Disclaimer: The information contained in this section may have been updated after the patient was seen, as this information can be updated by other users. Medical History (Updated 09/28/23 @ 18:27 by Monik Gardner DO) Mood disorder Social History Smoking Status: Unknown if ever smoked alcohol intake: never substance use type: denies use current occupational status: employed Travel in the last 8 weeks: None household members: family and children housing: house number of children: 3 current occupational exposures/hazards: No <ROBER May - Last Filed: 09/28/23 17:01> ROS Obtained: Yes Systems reviewed as appropriate & no additional complaints except as documented Physical Exam <ROBER May - Last Filed: 09/28/23 17:01> General General appearance: alert and in no apparent distress Head Head exam: atraumatic and normal inspection Eye Eye exam: Present normal appearance, PERRL and EOMI ENT ENT exam: Present normal exam, normal oropharynx and mucous membranes moist Neck Neck exam: Present normal inspection, full ROM and trachea midline; Absent lymphadenopathy Chest Chest inspection: Present normal inspection and symmetric chest wall rise Respiratory Respiratory exam: Present normal lung sounds bilaterally; Absent accessory muscle use Cardiovascular Cardiovascular exam: Present regular rate, normal rhythm, normal heart sounds, +S1 and +S2 Abdominal Exam Abdominal exam: Present soft and normal bowel sounds; Absent tenderness, guarding or rebound Extremities Exam Extremities exam: Present normal inspection and full ROM Neurological Exam Neurological exam: Present alert, oriented X3 and CN II-XII intact Psychiatric Psychiatric exam: Present normal affect and normal mood Skin Skin exam: Present warm, dry and normal color Lymphatic Lymphatic Findings: no adenopathy <Monik Gardner DO - Last Filed: 09/28/23 19:16> General General appearance: obese Comment: Uncomfortable appearing Expanded Lower Extremity Exam Left: Ankle exam: Present tenderness, ecchymosis, deformity and dislocation; Absent full ROM Comment: Patient has an obvious deformity to the left ankle with significant hematoma and bruising to the medial aspect of the left lower leg. She has palpable pulses distally as well as intact sensation, motor function of her toes, and intact capillary refill. Medical Decision Making <ROBER May - Last Filed: 09/28/23 17:01> Vital Signs: 09/28/23 17:01 09/28/23 17:30 09/28/23 18:00 Temperature 98.0 F Temperature Source Oral Pulse Rate 104 H 101 H Pulse Rate [Right] 101 H Respiratory Rate 22 Blood Pressure 131/97 H 147/88 H Blood Pressure [Right Arm] 169/102 H Blood Pressure Mean Blood Pressure Mean [Right Arm] 124 Blood Pressure Source [Right Arm] Automatic Cuff 02 Sat by Pulse Oximetry 98 98 98 Oxygen Delivery Method Room Air 09/28/23 18:33 Temperature Temperature Source Pulse Rate 99 H Pulse Rate [Right] Respiratory Rate Blood Pressure 133/97 H Blood Pressure [Right Arm] Blood Pressure Mean 111 Blood Pressure Mean [Right Arm] Blood Pressure Source [Right Arm] 02 Sat by Pulse Oximetry 98 Oxygen Delivery Method Orders (Tests/Meds): ED MEDICATIONS Discontinued Medications Generic Name Dose Route Start Last Admin Trade Name Fortino PRN Reason Stop Dose Admin Acetaminophen 1,000 mg 09/28/23 17:01 09/28/23 17:27 Acetaminophen 500mg Tab PO 09/28/23 17:02 1,000 mg ONCE ONE Administration Hydromorphone HCl 1 mg 09/28/23 18:32 09/28/23 18:41 Hydromorphone 2mg/Ml Syringe IV 09/28/23 18:33 1 mg ONCE ONE Administration Ibuprofen 800 mg 09/28/23 17:01 09/28/23 17:17 Ibuprofen 400 Mg Tablet PO 09/28/23 17:02 Not Given ONCE ONE Ketorolac Tromethamine 15 mg 09/28/23 17:08 09/28/23 17:27 Ketorolac 30mg/Ml Vial IV 09/28/23 17:09 15 mg ONCE ONE Administration Morphine Sulfate 4 mg 09/28/23 17:08 09/28/23 17:27 Morphine 4mg/Ml Syringe IV 09/28/23 17:09 4 mg ONCE ONE Administration Ondansetron HCl 4 mg 09/28/23 18:32 09/28/23 18:41 Ondansetron 4mg/2ml Vial IV 09/28/23 18:33 4 mg ONCE ONE Administration Oxycodone HCl 5 mg 09/28/23 17:01 09/28/23 17:17 Oxycodone 5mg Immediate Release Tablet PO 09/28/23 17:02 Not Given ONCE ONE ORDERS Category Date Time Status Ankle XR - Left 2 Views [XR ankle LT 2V] Stat Exams 09/28/23 19:07 Ordered Ankle XR - Left minimum 3 Views [XR ankle LT min 3V] Exams 09/28/23 17:01 Completed Stat Femur XR left 2 views [XR femur LT 2V] Stat Exams 09/28/23 17:01 Completed Foot XR left minimum 3 views [XR foot LT min 3V] Stat Exams 09/28/23 17:01 Completed Hip XR left minimum 2 views [XR hip LT 2-3V w/pelvis] Exams 09/28/23 17:01 Completed Stat Knee XR left 3 views [XR knee LT 3V] Stat Exams 09/28/23 17:01 Completed Tibia/fibula XR left 2 views [XR tibia fibula LT 2V] Exams 09/28/23 17:01 Completed Stat Medical Decision Narrative: In summary patient is a [age, sex] who presents to the emergency department for evaluation of [complaint]. Patient is [hemodynamically stable/unstable] upon arrival, [febrile/afebrile]. [Unremarkable physical exam, nonfocal exam versus focal remarkable exam]. Differential diagnosis includes [DDx]. Initial workup will be conducted with [hematologic labs, imaging, respiratory swab, describe workup]. Initial interventions include [crystalloid bolus, medications, p.o. challenge, etc.] initial workup reviewed by me [hematologic labs are remarkable for... Imaging remarkable for... Urinalysis remarkable for]. Upon repeat evaluation [patient had acceptable resolution of symptoms, had persistent pain for which additional interventions were conducted (describe interventions), tolerated p.o., was ambulatory, etc.]. Given this [patient is appropriate for discharge at this time and will be discharged with a prescription for... The case was discussed with hospital medicine regarding management and they will admit the patient their service for continued evaluation at this time... Etc.] Places where you can increase complexity: I informally interpreted the patient's chest x-ray or CT read and is remarkable for... Documenting what the field collector shows with rate and rhythm Consideration of test but deferring. Ex: I considered chest x-ray on this patient however given that they have no oxygen requirement and are clear to auscultation all lung jacobo will be deferred. Social determinants of health: Given that patient is undomiciled increases complexity. Given that patient has polysubstance abuse compounds all aspects of care <Monik Gardner, DO - Last Filed: 09/28/23 19:16> [place] Pt receiving controlled substance: No Vital Signs: 09/28/23 17:01 09/28/23 17:30 09/28/23 18:00 Temperature 98.0 F Temperature Source Oral Pulse Rate 104 H 101 H Pulse Rate [Right] 101 H Respiratory Rate 22 Blood Pressure 131/97 H 147/88 H Blood Pressure [Right Arm] 169/102 H Blood Pressure Mean Blood Pressure Mean [Right Arm] 124 Blood Pressure Source [Right Arm] Automatic Cuff 02 Sat by Pulse Oximetry 98 98 98 Oxygen Delivery Method Room Air 09/28/23 18:33 Temperature Temperature Source Pulse Rate 99 H Pulse Rate [Right] Respiratory Rate Blood Pressure 133/97 H Blood Pressure [Right Arm] Blood Pressure Mean 111 Blood Pressure Mean [Right Arm] Blood Pressure Source [Right Arm] 02 Sat by Pulse Oximetry 98 Oxygen Delivery Method Orders (Tests/Meds): ED MEDICATIONS Discontinued Medications Generic Name Dose Route Start Last Admin Trade Name Kristopherq PRN Reason Stop Dose Admin Acetaminophen 1,000 mg 09/28/23 17:01 09/28/23 17:27 Acetaminophen 500mg Tab PO 09/28/23 17:02 1,000 mg ONCE ONE Administration Hydromorphone HCl 1 mg 09/28/23 18:32 09/28/23 18:41 Hydromorphone 2mg/Ml Syringe IV 09/28/23 18:33 1 mg ONCE ONE Administration Ibuprofen 800 mg 09/28/23 17:01 09/28/23 17:17 Ibuprofen 400 Mg Tablet PO 09/28/23 17:02 Not Given ONCE ONE Ketorolac Tromethamine 15 mg 09/28/23 17:08 09/28/23 17:27 Ketorolac 30mg/Ml Vial IV 09/28/23 17:09 15 mg ONCE ONE Administration Morphine Sulfate 4 mg 09/28/23 17:08 09/28/23 17:27 Morphine 4mg/Ml Syringe IV 09/28/23 17:09 4 mg ONCE ONE Administration Ondansetron HCl 4 mg 09/28/23 18:32 09/28/23 18:41 Ondansetron 4mg/2ml Vial IV 09/28/23 18:33 4 mg ONCE ONE Administration Oxycodone HCl 5 mg 09/28/23 17:01 09/28/23 17:17 Oxycodone 5mg Immediate Release Tablet PO 09/28/23 17:02 Not Given ONCE ONE ORDERS Category Date Time Status Ankle XR - Left 2 Views [XR ankle LT 2V] Stat Exams 09/28/23 19:07 Ordered Ankle XR - Left minimum 3 Views [XR ankle LT min 3V] Exams 09/28/23 17:01 Completed Stat Femur XR left 2 views [XR femur LT 2V] Stat Exams 09/28/23 17:01 Completed Foot XR left minimum 3 views [XR foot LT min 3V] Stat Exams 09/28/23 17:01 Completed Hip XR left minimum 2 views [XR hip LT 2-3V w/pelvis] Exams 09/28/23 17:01 Completed Stat Knee XR left 3 views [XR knee LT 3V] Stat Exams 09/28/23 17:01 Completed Tibia/fibula XR left 2 views [XR tibia fibula LT 2V] Exams 09/28/23 17:01 Completed Stat Medical Decision Narrative: In summary, this patient is a 48-year-old female presenting to the Emergency Department for evaluation of left ankle injury after mechanical ground-level fall. Differential diagnoses considered include but are not limited to fracture, contusion, dislocation, neurovascular injury. Ruling out the most morbid conditions drove assessment. It should be noted patient's history includes obesity and seizure disorder which may or may not be at goal therapy. This complicates all aspects of care by increasing patient's risk for morbidity. On exam, the patient is uncomfortable appearing with obvious deformity of the left ankle. She is neurovascularly intact. Multimodal pain control given including initially morphine, Toradol, Tylenol, and Zofran. Patient continued to have pain, so she was given IV Dilaudid. Workup included x-rays of the left lower extremity.. I independently interpreted x-ray prior to the radiologist read and noted obvious fracture dislocation of the left ankle. Please see their read for final interpretation. Patient is agreeable to procedural sedation for splinting and reduction. She did have slight delayed capillary refill on repeat assessment of her leg with worsening swelling, which makes quick reduction even more imperative. After risk versus benefit explained, she elected to undergo procedural sedation with ketamine for reduction and splinting of her left ankle. This was done with plaster. Splint was applied by myself and patient had improved capillary refill after splinting. Do not have orthopedics on-call right now, so I had an interactive discussion with Dr. Childress at and the transfer center who advised that they would accept the patient to [facility] emergency department for evaluation and management of her left ankle fracture dislocation. She was neurovascularly intact at time of discharge. Patient was transported in stable condition. Procedures <Monik Gardner DO - Last Filed: 09/28/23 19:16> Risk/Benefits of Procedure(s) Were Explained: Yes Orthopedic Fracture Reduction Fracture #1: Time Out Performed: Yes Side: left Fracture Reduction Location: tibia and fibula Analgesia: procedural sedation Technique: direct manipulation and traction/counter-traction Post Reduction X-rays Demonstrate: acceptable reduction Post-reduction neuro exam: intact Post-reduction vascular exam: intact Splint Applied: Yes Patient Tolerated Procedure: well Additional Comments: Vascular status improved afterward with great capillary refill. Patient tolerated procedure very well. Satisfactory reduction noted on x-ray. Patient is being transferred for definitive management. Orthopedic Splinting/Casting Injury #1: Side: left Lower Extremity Injury Location: ankle Lower Extremity Immobilizer: posterior splint and stirrup splint Additional Comments: Plaster splint applied by myself to the left lower extremity. Post Cast/Splinting Neuro Status: intact Post Cast/Splinting Vasc Status: intact Procedural Sedation Presedation Evaluation: On assessment, patient is resting comfortably. She is not requiring any oxygen. She denies any history of difficult sedation or airway in the past. No history of issues with anesthesia. Complicating sedation is obesity, but otherwise ASA class II. Risk versus benefit of sedation explained, and patient is agreeable to procedure sedation for reduction of the left ankle fracture dislocation. Mallampati Score:: Class II Indication: fracture/dislocation reduction ASA Class: II Preparation: field collector applied, pulse oximeter, capnometry used, supplemental O2 applied, reversal agents at bedside, suction/airway equipment at bedside and IV secured Ketamine: IV Ketamine dose (mg): 110 Patient Tolerated Procedure: well and no complications Complications: none Critical Care <Monik Gardner, DO - Last Filed: 09/28/23 19:16> Critical Care Time Critical Care Time: No
[2023-09-28] MEDS: ACETAMINOPHEN 500MG TAB 1000 MG PO (17:27)
[2023-09-28] MEDS: MORPHINE 4MG/ML SYRINGE 4 MG IV (17:27)
[2023-09-28] MEDS: KETOROLAC 30MG/ML VIAL 15 MG IV (17:27)
--- NOTE | 2023-09-28 18:23 | PC.NURSE ---
transfer center contacted for possible transfer.
--- NOTE | 2023-09-28 18:40 | PC.NURSE ---
Dr. Gardner at bedside with pt, LLE now very swollen and with the difficult fx, it is causing poor flow to pt's Left foot. Dr. Gardner would like to prepare for fx reducation and splint placement under conscious sedation. acquired splint materials and ask this RN to prepare consent and pull medications: Ketamine 300 mg, Dilaudid 1mg IVP , and zofran 4mg IVP.
[2023-09-28] MEDS: ONDANSETRON 4MG/2ML VIAL 4 MG IV (18:41)
[2023-09-28] MEDS: HYDROMORPHONE 2MG/ML SYRINGE 1 MG IV (18:41)
[2023-09-28] MEDS: KETAMINE 50MG/1ML SYRINGE 80 MG IV (18:52)
[2023-09-28] MEDS: KETAMINE 50MG/1ML SYRINGE 30 MG IV (19:00)
--- NOTE | 2023-09-28 19:00 | PC.NURSE ---
1845 Dr. Gardner at bedside and asked for staff to prepare conscious sedation consent for reduction and splint placement. New medications ordered for Ketamine, zofran, and dilaudid. 1850 Pt and SO gave consent for procedure. 185 Time out performed: Dr. Gardner, Lou Caro EMT, Cody Joyce RN, and Madhu Courtney RN at bedside and began to administer Ketamine 80mg IVP per Dr. Gardner
--- NOTE | 2023-09-28 19:01 | PC.NURSE ---
@ 1900 pt more awake, in pain, and not tolerating procedure well. Dr. Gardner ordered an additional dose of Ketamine 30mg IVP at this time.
--- NOTE | 2023-09-28 19:07 | PC.NURSE ---
Per post reduction xray, Dr. Gardner is satisfied with reduction and splint placement. Pulses are intact now to left foot. WELT BEATER < 3 seconds. At the beginning of this procedure, Dr. Gardner ordered 300mg of Ketamine for conscious sedation, however the ER only had a total of 250mg available in our [facility]. Dr. Gardner stated 250mg would be ok, this was pulled. While in the room, Dr. Jones changed inital dose to be given at 80mg of Ketamine. This dose & drug was verified with Dr. Gardner and Delores Courtney RN. As pt was not tolerating the procedure, @ 1900 MD ordered an additional 30mg of Ketamine, this was administered with appropriate effect. As medication comes in 50mg/1ml syringes. Staff was able to return 2 unopened syringes to the [facility] and waste the partial syringe remaining of 40mg.
--- NOTE | 2023-09-28 19:07 | XR_ITS ---
PROCEDURE INFORMATION: Exam: XR Left Ankle Exam date and time: 09/28/2023 6:53 PM Age: 48 years old Clinical indication: Injury or trauma; Fall; Fracture, traumatic; Closed fracture; Ankle; Left; Not specified; Additional info: Post-reduction TECHNIQUE: Imaging protocol: Radiologic exam of the left ankle. Views: 1 or 2 views. COMPARISON: CR XR ANKLE LT MIN 3V 09/28/2023 5:27 PM FINDINGS: Bones/joints: Post reduction radiographs demonstrates improved anatomic alignment involving the severely comminuted distal fibular fracture. There is likely re-establishment of anatomic alignment at the tibiotalar joint although without a lateral view cannot completely confirm. The previously noted displaced fracture fragments near the medial malleolus are improved in positioning near the expected location of the medial malleolus. Soft tissues: Severe distal soft tissue swelling. IMPRESSION: Post reduction radiographs demonstrates improved anatomic alignment involving the severely comminuted distal fibular fracture. There is likely re-establishment of anatomic alignment at the tibiotalar joint although without a lateral view cannot completely confirm. The previously noted displaced fracture fragments near the medial malleolus are improved in positioning near the expected location of the medial malleolus.
--- NOTE | 2023-09-28 19:19 | PC.NURSE ---
110 mg total of ketamine given per ER MD Gardner, meds pulled from accudose per Cody Joyce RN
--- NOTE | 2023-09-28 20:07 | PC.NURSE ---
called report to Kya NAIK at ER
[2023-09-28] MEDS: SODIUM CHLORIDE 0.9% 25ML BAG 25 ML IV (20:30)
[2023-09-28] MEDS: PROMETHAZINE HCL 25MG/ML 1ML VIAL 12.5 MG IV (20:30)
[2023-09-28] MEDS: HYDROMORPHONE 2MG/ML SYRINGE 0.5 MG IV (20:55)
== END 2023-09-28 21:03 | disposition short-term general hospital (02) ==
PROVIDERS: Emergency Provider Emergency Medicine; PCP Family Medicine
DX: S82.452A Displaced comminuted fracture of shaft of left fibula, initial encounter for closed fracture (principal); W17.2XXA Fall into hole, initial encounter
CPT/HCPCS: 99152; 27840; 73502; 73552; 73562; 73590; 73600; 73610; 73630; 96374; 96375; 96376; 99285; J1170; J1885; J2270; J2405; J2550

== ENCOUNTER 2023-11-24 08:00 | Outpatient (RCR) | payer MEDICAID, SELFPAY | END 2023-11-24 08:05 | disposition home or self-care (01) | LOC: PT 08:00 | PROVIDERS: Visit Provider Nurse Practitioner Women's Health | DX: M79.662 Pain in left lower leg (principal); S82.852D Displaced trimalleolar fracture of left lower leg, subsequent encounter for closed fracture with routine healing; S82.402D Unspecified fracture of shaft of left fibula, subsequent encounter for closed fracture with routine healing | CPT/HCPCS: 97110; 97163; 97530; 97535 ==

== ENCOUNTER 2023-11-24 09:19 | Emergency (ER) | payer MEDICAID, SELFPAY ==
[2023-11-24 10:00] VITALS: BP 113/83; PULSE 70; RESP 20; TEMP 36.6; O2SAT 100; BMI 45.3
--- NOTE | 2023-11-24 10:11 | ED_ITS ---
Discharge Plan Disposition Patient Disposition: Home, Self-Care Prescriptions Prescriptions: No Action ferrous sulfate 325 mg (65 mg iron) tablet 325 mg PO DAILY ranitidine HCl 150 mg capsule 150 mg PO DAILY Zyrtec 10 mg capsule 10 mg PO DAILY fluticasone propionate [Flonase Allergy Relief] 50 mcg/actuation spray,suspension 1 spray INTRANASAL DAILY MDD allergy naproxen 375 mg tablet 375 mg PO BID PRN (Reason: pain) lisinopril-hydrochlorothiazide 20-12.5 mg tablet PO DAILY Patient Comments: TAKE ONE TABLET BY MOUTH EVERY DAY pantoprazole 40 mg tablet,delayed release (DR/EC) 40 mg PO DAILY divalproex [Depakote] 500 mg tablet,delayed release (DR/EC) 500 mg PO TID triamterene-hydrochlorothiazid 37.5-25 mg capsule 1 cap PO DAILY amitriptyline 10 mg tablet 10 mg PO DAILY oxybutynin chloride 5 mg tablet extended release 24hr 5 mg PO DAILY Toviaz 4 mg tablet extended release 24 hr 4 mg PO DAILY aripiprazole 5 mg tablet 5 mg PO QHS Qty: 30 2RF oxybutynin chloride 5 mg tablet 5 mg PO BID Qty: 120 5RF Toviaz 8 mg tablet extended release 24 hr 8 mg PO DAILY Qty: 30 5RF ondansetron 4 MG tablet,disintegrating 4 mg PO Q8HP PRN (Reason: Nausea) Qty: 20 0RF cefdinir 300 mg capsule 300 mg PO BID 10 Days Qty: 20 0RF Referrals Follow up/Referrals: Javier Logan MD [Primary Care Provider] - See instructions Clinical Impressions Clinical Impression: Encounter for removal of sutures Print Language Print Language: Czech Discharge ED Provider: Joshua Andrews [facility] General Stated complaint: stitches removed Time Seen by Provider: 11/24/23 10:11 Related Data Home Medications ?Medication ?Instructions ?Recorded ?Confirmed amitriptyline 10 mg tablet 10 mg PO DAILY . 04/20/18 07/15/23 divalproex 500 mg tablet,delayed 500 mg PO TID . 04/20/18 07/15/23 release (Depakote) fesoterodine 4 mg tablet,extended 4 mg PO DAILY . 04/20/18 07/15/23 release 24 hr (Toviaz) oxybutynin chloride 5 mg 5 mg PO DAILY . 04/20/18 07/15/23 tablet,extended release 24 hr pantoprazole 40 mg tablet,delayed 40 mg PO DAILY GERD 04/20/18 07/15/23 release triamterene 37.5 1 cap PO DAILY fluid 04/20/18 07/15/23 mg-hydrochlorothiazide 25 mg capsule cetirizine 10 mg capsule (Zyrtec) 10 mg PO DAILY allergies 10/28/18 07/15/23 ferrous sulfate 325 mg (65 mg 325 mg PO DAILY Supplement 10/28/18 07/15/23 iron) tablet fluticasone propionate 50 1 spray intranasal DAILY allergies 10/28/18 07/15/23 mcg/actuation nasal spray,suspension (Flonase Allergy Relief) naproxen 375 mg tablet 375 mg PO BID PRN pain 10/28/18 07/15/23 ranitidine HCl 150 mg capsule 150 mg PO DAILY GERD 10/28/18 07/15/23 lisinopril 20 tab PO DAILY 04/13/19 07/15/23 mg-hydrochlorothiazide 12.5 mg tablet Previous Rx's ?Medication ?Instructions ?Recorded ondansetron 4 mg disintegrating 4 mg PO Q8HP PRN Nausea ##20 06/28/19 tablet fesoterodine 8 mg tablet,extended 8 mg PO DAILY #30 tabs 05/23/21 release 24 hr (Toviaz) oxybutynin chloride 5 mg tablet 5 mg PO BID #120 tabs 05/23/21 cefdinir 300 mg capsule 300 mg PO BID 10 days #20 caps 12/29/22 aripiprazole 5 mg tablet 5 mg PO QHS mood #30 tabs 07/03/23 Allergies Allergy/AdvReac Type Severity Reaction Status Date / Time Iodinated Contrast Media Allergy Intermediate BREAKS Verified 07/15/23 12:53 [Iodinated Contrast Media - OUT IV Dye] [facility] Disclaimer: The information contained in this section may have been updated after the patient was seen, as this information can be updated by other users. Medical History (Updated 11/24/23 @ 10:58 by Diamond Stout RN) Mood disorder Social History Smoking Status: Unknown if ever smoked alcohol intake: never substance use type: denies use current occupational status: employed Travel in the last 8 weeks: None household members: family and children housing: house number of children: 3 current occupational exposures/hazards: No
[2023-11-24 10:38] VITALS: BP 113/83; PULSE 70; RESP 20; TEMP 36.6; O2SAT 100
== END 2023-11-24 10:40 | disposition home or self-care (01) ==
LOC: UTC 09:21
PROVIDERS: Emergency Provider Nurse Practitioner Family; PCP Family Medicine
DX: Z48.02 Encounter for removal of sutures (principal)

== ENCOUNTER 2023-12-22 12:33 | Outpatient (CLI) | payer MEDICAID, SELFPAY ==
--- NOTE | 2023-12-22 12:41 | XR_ITS ---
FINAL REPORT CLINICAL HISTORY: INJURY COMPARISON: None FINDINGS: LEFT ANKLE Three views demonstrate a sideplate and screws securing a healed/healing fracture deformity of the distal fibula. Two screws are noted securing the medial malleolus. Fracture line remains visible. The visualized joint spaces are normally aligned. There is a moderate plantar spur. Diffuse soft tissue swelling is noted about the ankle. IMPRESSION: Postoperative changes in soft tissue swelling as above. Reviewed, Interpreted and Dictated by Eris Tejada MD Transcribed by Jeanne Rodríguez Authenticated and [facility]
== END 2023-12-22 23:59 | disposition home or self-care (01) ==
LOC: RAD 12:35
PROVIDERS: PCP Family Medicine; Visit Provider Family Medicine
DX: M25.572 Pain in left ankle and joints of left foot (principal); S99.912A Unspecified injury of left ankle, initial encounter
CPT/HCPCS: 73610

== ENCOUNTER 2024-02-02 11:43 | Outpatient (CLI) | payer MEDICAID, SELFPAY ==
--- NOTE | 2024-02-02 11:48 | XR_ITS ---
PROCEDURE INFORMATION: Exam: XR Left Ankle Exam date and time: 02/02/2024 11:52 AM Age: 48 years old Clinical indication: Injury or trauma; Other: Pain after fall; Prior surgery; Surgery date: 6+ months; Surgery type: Patient unsure of when surgery was TECHNIQUE: Imaging protocol: Radiologic exam of the left ankle. Views: 3 or more views. COMPARISON: CR XR ANKLE LT MIN 3V 12/22/2023 12:48 PM FINDINGS: Bones/joints: Bimalleolar fracture repair. Mild lateral tilting of the talus. Soft tissues: Soft tissue swelling. IMPRESSION: Postop bimalleolar fracture surgical repair. Persistent lateral tilting of the talus. Soft tissue swelling. No change in appearance when compared to the prior exam dated 12/22/2023
== END 2024-02-02 23:59 | disposition home or self-care (01) ==
PROVIDERS: PCP Family Medicine; Visit Provider Family Medicine
DX: S99.912A Unspecified injury of left ankle, initial encounter (principal)
CPT/HCPCS: 73610

== ENCOUNTER 2024-03-02 13:39 | Outpatient (CLI) | payer MEDICAID, SELFPAY ==
--- NOTE | 2024-03-02 13:43 | CT_ITS ---
FINAL REPORT TECHNIQUE: Thin section axial images were obtained from skull base to vertex without contrast. Coronal reconstruction images were obtained from the axial data. Exam was performed using dose reduction technique. CLINICAL HISTORY: MIGRAINES COMPARISON: 08/19/2018 FINDINGS: There is no mass effect or midline shift. There is no hydrocephalus. There is no intracranial hemorrhage. The posterior fossa is without acute abnormality. The basilar cisterns are preserved. There is opacification of the bilateral left, greater than right, maxillary sinuses. There is an air-fluid level in the sphenoid sinus. There is partial opacification of the left frontal sinus. No acute osseous abnormality is identified. IMPRESSION: No acute intracranial abnormality. Acute on chronic sinusitis which is new from the prior exam. Reviewed, Interpreted and Dictated by Jade Sheriff MD Transcribed by Judith Ang Authenticated and [facility]
== END 2024-03-02 23:59 | disposition home or self-care (01) ==
LOC: RAD 13:40
PROVIDERS: PCP Family Medicine; Visit Provider Nurse Practitioner Family
DX: G43.909 Migraine, unspecified, not intractable, without status migrainosus (principal)
CPT/HCPCS: 70450